=== PATIENT | male | born 1995 | race Caucasian/White ===

== ENCOUNTER 2017-04-03 21:42 | Emergency (ER) | payer MEDICAID, OTHER ==
[~2017-04-03] VITALS: Ht 170.2 cm; Wt 71.5 kg
[2017-04-03 21:45] VITALS: Ht 170.2 cm; Wt 71.5 kg
[2017-04-03] MEDS ORDERED: FAMO-18 PO (23:05)
[2017-04-03 23:20] VITALS: BP 121/66; PULSE 77; RESP 18
--- NOTE | 2017-04-03 23:22 | ERA ---
ER Documentation Chief Complaint Date/Time DATE: 04/03/17 TIME: 23:13 Chief Complaint lower abd pain x 2 days HPI This is a 21-year-old male with a chief complaint of epigastric pain. Patient' s pain is persistent over 3 days and has occurred before in the past few years. Patient has recently moved from [place] and is not speaking Japanese. The framing and hanging was the [employer]. Patient denies any medical conditions. Patient states that the pain gets worse after eating. Patient denies chest pain or worsening symptoms at night. There is no family history of any medical conditions per mother. Patient denies fever, anorexia, weight loss, migrating pain, constipation, or new/recently changed medications. ROS All systems reviewed and are negative except as per history of present illness. Medications Home Meds Active Scripts Famotidine* (Pepcid*) 20 Mg Tablet, 20 MG PO BID for 4 Days, TAB Prov:ARSLAN LANDAVERDE PA-C 04/03/17 Allergies Allergies: Coded Allergies: No Known Allergy (Unverified , 04/03/17) PMhx/Soc History of Surgery: No Anesthesia Reaction: No Hx Neurological Disorder: No Hx Respiratory Disorders: No Hx Cardiac Disorders: No Hx Psychiatric Problems: No Hx Miscellaneous Medical Probl: No Hx Alcohol Use: No Hx Substance Use: No Hx Tobacco Use: No Smoking Status: Never smoker Physical Exam Vitals Vital Signs Date Time Temp Pulse Resp B/P Pulse Ox O2 Delivery O2 Flow Rate FiO2 04/03/17 21:45 97.8 122 20 133/80 100 Physical Exam Const: Healthy-appearing. Well-nourished. Well-developed. No acute distress. Head: Normocephalic, Atraumatic. No sinus tenderness. Eyes: Non-injected; No scleral erythema, discharge or foreign body. EOMI and FORREST bilaterally. Ears: Normal External Ears, EACs clear, TM normal bilaterally without erythema. Nose: Normal nose without discharge, septal deviation, or sinus tenderness. Oral: No oral edema visualized. Mucous membranes moist and pink. Neck: No cervical lymphadenopathy, masses or goiter palpated. Full range of motion. Supple. Trachea midline. ~ No meningismus. Pulm: Good air movement in upper and lower respiratory tracts. No dyspnea, stridor, tripoding or drooling. Clear to auscultation bilaterally. Percussion unremarkable in all lung watters bilaterally. Cardio: Regular rate and rhythm; No murmurs, gallops or rubs auscultated. No JVD grossly observed. Radial and posterior tibial pulses 2+ bilaterally. No cyanosis. Capillary refill less than 2 seconds. Abd: Soft, non tender, non distended. No guarding, masses. Normal bowel sounds. No McBurney's point tenderness. MS: Normal motor strength, normal tone with gross examination. Skin: No petechiae or rashes. No ulcer, induration, jaundice. Good turgor. Back: No midline, flank or CVA tenderness. Ext: No cyanosis, or edema. Normal movement of all extremities grossly observed. Neur: Awake, alert and oriented x3. Neurovascularly intact bilaterally. Psych: Active and alert. Normal Mood and Affect. Oriented x3. Procedures/MDM Patient's 21-year-old male who presents the chief complaint of episodic epigastric pain. There is no tenderness to palpation of the abdomen. Patient is well-appearing and has no previous medical conditions or family history of any medical conditions. Patient has denied any changes in diet. Patient is currently not in any pain so no medication was given in the ED. the current most likely diagnosis is gastritis with possible ulcer. The treatment plan will thus include outpatient famotidine with instructions to follow-up with PCP in the next 1-3 days.. At this time I do not suspect acute pancreatitis, cholangitis, myocardial/ Intestinal ischemia, pneumonia, hernia, or esophageal rupture. Patient tolerates p.o. and I have spoken with them via framing and hanging [employer] about diagnosis, treatment plan and management. They have verbally responded that they understand their status and treatment plan. The patients vitals are stable , and their current condition is appropriate for discharge. The patient will be given discharge instructions with return precautions. At this time Departure Diagnosis: Primary Impression: Gastritis Qualified Code: K29.50 - Chronic gastritis without bleeding, unspecified gastritis type Condition: Stable Patient Instructions: Gastritis Vs. Ulcer [facility] Usted se patricia hecho un examen mdico de control que le indica que no est en mindy condicin que requiera tratamiento urgente en el Departamento de Emergencia. Un estudio ms profundo y el tratamiento de reich condicin pueden esperar sin ningn riesgo hasta que usted sea atendida/o en el consultorio de reich mdico o mindy cl ajith. Es responsabilidad suya arreglar mindy ellen para el seguimiento del ambreen. MANEJO DE CONDICIONES NO URGENTES EN EL FUTURO 1) Si usted tiene un mdico de atencin primaria: Usted debera llamar a reich mdico de atencin primaria antes de venir al departamento de emergencia. Despus de las horas de consultorio, reich doctor o reich asociado/a est disponible por telfono. El mdico o enfermero de rené en el servicio telefnico puede asesorarle por juliana medio para atender el problema, o ambreen contrario se puede programar mindy ellen. 2) Si usted no tiene un mdico de atencin primaria: Llame al mdico o clnica de referencia que aparece abajo navjot las horas de consultorio para hacer mindy ellen para que le vean. CLINICAS: [facility] [phone] [address] [facility] [phone] [facility] [phone] [address] [facility]. [facility] [phone] [address] [facility] [phone] [address] [facility]. [phone] [address] [facility]. [facility] YOU HAVE RECEIVED A MEDICAL SCREENING EXAM AND THE RESULTS INDICATE THAT YOU DO NOT HAVE A CONDITION THAT REQUIRES URGENT TREATMENT IN THE EMERGENCY DEPARTMENT. FURTHER EVALUATION AND TREATMENT OF YOUR CONDITION CAN WAIT UNTIL YOU ARE SEEN IN YOUR DOCTORS OFFICE WITHIN THE NEXT 1-2 DAYS. IT IS YOUR RESPONSIBILITY TO MAKE AN APPOINTMENT FOR FOLOW-UP CARE. IF YOU HAVE A PRIMARY DOCTOR --you should call your primary doctor and schedule an appointment IF YOU DO NOT HAVE A PRIMARY DOCTOR YOU CAN CALL OUR PHYSICIAN REFERRAL HOTLINE AT IF YOU CAN NOT AFFORD TO SEE A PHYSICIAN YOU CAN CHOSE FROM THE FOLLOWING [facility] CLINICS [facility] [address] [facility] [address] [facility] [facility] [address] [facility] [facility] [address] [facility]. [facility] [address] [facility]. [facility]. [address] [place] Additional Instructions: Maryanne un seguimiento con reich PCP dentro de los prximos 1-3 simeon para mindy evaluaci n ms completa y mindy posible derivacin a un especialista. Devuelva el departamento de emergencia inmediatamente si los sntomas empeoran o cambian. Si tiene alguna pregunta con respecto a los medicamentos, consulte con reich farmac utico o con nosotros antes de salir. Si se producen reacciones adversas mientras luda magaly medicamentos, suspenda el tratamiento y regrese inmediatamente al servicio de urgencias. [place] magaly medicamentos segn las indicaciones y complete el curso completo del tratamiento. ARSLAN LANDAVERDE PA-C Apr 03, 2017 23:22
== END 2017-04-03 23:21 | disposition home or self-care (01) ==
LOC: FTE 21:42
DX: K29.50 Unspecified chronic gastritis without bleeding (principal)
CPT/HCPCS: 99283